=== PATIENT | female | born 1935 | race Caucasian/White ===

== ENCOUNTER 2021-06-23 05:22 | Inpatient (IN) | payer BC, MEDICARE ==
[~2021-06-23] VITALS: Ht 167.6 cm; Wt 65.8 kg
[~2021-06-23 05:22] MED LIST: DIGOXIN125 MCG PO
[2021-06-23] MEDS ORDERED: SODIUM CHLORIDE 0.9% 1000ML 1,000 ML IV ONE (05:45)
[2021-06-23] MEDS ORDERED: ONDANSETRON HCL INJ 2MG/ML 2ML 2 MG/ML VIAL IV PRN (06:00)
[2021-06-23] MEDS ORDERED: Morphine 2mg Syringe 2 MG/ML SYR IV PRN (06:00)
[2021-06-23 06:18] LABS: BASOPHILS # (AUTO) 0.1 (0.0-0.1); BASOPHILS % 0.8 % (0.0-1.0); EOSINOPHILS # (AUTO) 0.1 (0.0-0.4); EOSINOPHILS % 1.6 % (0.0-6.0); HEMATOCRIT 35.4 % (34.2-44.1); HEMOGLOBIN 11.7 g/dL (12.0-16.0); LYMPHOCYTES # (AUTO) 2.3 (1.0-3.2); LYMPHOCYTES % 30.6 % (18.0-39.1); MEAN CORPUSCULAR HEMOGLOBIN 32.9 pg (28-32); MEAN CORPUSCULAR HGB CONC 33.1 g/dL (31-35); MEAN CORPUSCULAR VOLUME 99.4 fL (81-99); MONOCYTES # (AUTO) 0.5 (0.2-0.8); MONOCYTES % 6.5 % (4.4-11.3); NEUTROPHILS # (AUTO) 4.5 (2.1-6.9); PLATELET COUNT 263 x10e3/uL (140-360); RED BLOOD COUNT 3.56 x10e6/uL (3.6-5.1); RED CELL DISTRIBUTION WIDTH 13.1 % (11.7-14.4)
[2021-06-23 06:23] LABS: INR 0.94; PROTHROMBIN TIME 13.4 seconds (11.9-14.5)
[2021-06-23 06:24] LABS: PARTIAL THROMBOPLASTIN TIME 29.2 seconds (23.8-35.5)
[2021-06-23 06:30] LABS: ALBUMIN 3.5 g/dL (3.5-5.0); ALBUMIN/GLOBULIN RATIO 0.9 (0.8-2.0); ANION GAP 15.6 mmol/L (8-16); CALCIUM 10.4 mg/dL (8.4-10.2); CREATININE, SERUM 1.28 mg/dL (0.57-1.11); POTASSIUM 4.6 mmol/L (3.5-5.1)
[2021-06-23 06:40] LABS: CREATINE KINASE MB 1.2 ng/mL (0-5.0)
[2021-06-23] MEDS ORDERED: SODIUM CHLORIDE 0.9% 50ML 50 ML ONE (08:21)
[2021-06-23] MEDS ORDERED: ESIDRIX25 MG PO (10:52)
[2021-06-23] MEDS ORDERED: SERTRALINE HCL100 MG PO (10:52)
[2021-06-23] MEDS ORDERED: ELIQUIS5 MG PO (10:52)
[2021-06-23] MEDS ORDERED: AMLODIPINE BESYL5 MG PO (10:52)
[2021-06-23] MEDS ORDERED: GEMFIBROZIL600 MG PO (10:52)
[2021-06-23] MEDS ORDERED: OLMESARTAN MEDO20 MG PO (10:52)
[2021-06-23 11:05] VITALS: BP 139/62
[2021-06-23 12:29] VITALS: BP 139/62
[2021-06-23 13:22] VITALS: BP 139/62
[2021-06-23 15:28] VITALS: BP 131/67
[2021-06-23] MEDS: FAMOTIDINE 20 MG TAB PO SCH (16:49)
[2021-06-23 20:00] VITALS: BP 119/66
[2021-06-23 21:00] VITALS: BP 119/66
[2021-06-23] MEDS: SERTRALINE HCL 100 MG TAB PO SCH (21:53)
[2021-06-23] MEDS: ACETAMINOPHEN/CODEINE 300MG - 30MG TAB PO PRN (21:53)
[2021-06-24] VITALS (8 sets, daily range): BP systolic 119–137; BP diastolic 46–69
[2021-06-24 06:24] LABS: HEMATOCRIT 32.1 % (34.2-44.1); HEMOGLOBIN 10.5 g/dL (12.0-16.0)
[2021-06-24 06:42] LABS: ANION GAP 11.2 mmol/L (8-16); CALCIUM 9.2 mg/dL (8.4-10.2); CREATININE, SERUM 1.01 mg/dL (0.57-1.11); POTASSIUM 3.2 mmol/L (3.5-5.1)
[2021-06-24] MEDS: FAMOTIDINE 20 MG TAB PO SCH ×2 (08:30→18:45)
[2021-06-24] MEDS: AMLODIPINE BESYLATE 5 MG TAB PO SCH (10:17)
[2021-06-24] MEDS: DIGOXIN 0.125 MG TAB PO SCH (10:17)
[2021-06-24] MEDS: APIXABAN 5 MG TABLET PO SCH (17:00)
[2021-06-24] MEDS ORDERED: BACITRACIN/POLYMYXIN 30 GM OINT TP PRN (21:15)
[2021-06-24] MEDS: SERTRALINE HCL 100 MG TAB PO SCH (23:34)
[2021-06-25] VITALS: BP 120/68
[2021-06-25 02:38] VITALS: BP 120/68
[2021-06-25 04:00] VITALS: BP 121/51
[2021-06-25 07:52] VITALS: BP 119/57
[2021-06-25 09:00] VITALS: BP 119/57
[2021-06-25] MEDS: DIGOXIN 0.125 MG TAB PO SCH (09:00)
[2021-06-25] MEDS: APIXABAN 5 MG TABLET PO SCH (09:33)
[2021-06-25] MEDS: FAMOTIDINE 20 MG TAB PO SCH (09:33)
[2021-06-25] MEDS: AMLODIPINE BESYLATE 5 MG TAB PO SCH (09:33)
[2021-06-25] MEDS: ACETAMINOPHEN/CODEINE 300MG - 30MG TAB PO PRN (10:08)
== END 2021-06-25 10:35 | disposition home health service (06) | DRG 904 ==
LOC: ER 05:43 → ERHOLD 06:03 → PACU V 09:57 → IMCU 11:11 → MED/SURG3 11:47
PROVIDERS: ADMIT Internal Medicine; ATTEND Internal Medicine
PROC: 0JQ00ZZ Repair Scalp Subcutaneous Tissue and Fascia, Open Approach (ICD-10-PCS; 2021-06-23)
PROC: 0HR0XK3 Replacement of Scalp Skin with Nonautologous Tissue Substitute, Full Thickness, External Approach (ICD-10-PCS; principal; 2021-06-23 07:30)
DX: L76.21 Postprocedural hemorrhage of skin and subcutaneous tissue following a dermatologic procedure (principal); I48.20 Chronic atrial fibrillation, unspecified; N17.9 Acute kidney failure, unspecified; I10 Essential (primary) hypertension; Z96.653 Presence of artificial knee joint, bilateral; C44.42 Squamous cell carcinoma of skin of scalp and neck; E87.6 Hypokalemia; Z20.822 Contact with and (suspected) exposure to COVID-19
CPT/HCPCS: 36415; 80048; 80053; 82550; 82553; 84484; 85014; 85018; 85025; 85610; 85730; 93005; 94799; 97605; 97606; 99251; 99284; J0690; J2270; J2405; J7030; J7050; Q4104; U0002

== ENCOUNTER 2022-01-10 21:19 | Emergency (ER) | payer MEDICARE, OTHER ==
[~2022-01-10] VITALS: Ht 167.6 cm; Wt 65.8 kg
[~2022-01-10 21:19] MED LIST changes: +AMLODIPINE BESYL5 MG PO; +ELIQUIS5 MG PO; +ESIDRIX25 MG PO; +GEMFIBROZIL600 MG PO; +OLMESARTAN MEDO20 MG PO; +SERTRALINE HCL100 MG PO
[2022-01-10 22:02] LABS: BASOPHILS % 0.3 % (0.0-1.0); EOSINOPHILS # (AUTO) 0.2 (0.0-0.4); EOSINOPHILS % 1.3 % (0.0-6.0); HEMOGLOBIN 9.3 g/dL (12.0-16.0); LYMPHOCYTES # (AUTO) 1.9 (1.0-3.2); LYMPHOCYTES % 15.5 % (18.0-39.1); MEAN CORPUSCULAR HEMOGLOBIN 30.9 pg (28-32); MEAN CORPUSCULAR HGB CONC 32.1 g/dL (31-35); MEAN CORPUSCULAR VOLUME 96.3 fL (81-99); MONOCYTES # (AUTO) 0.8 (0.2-0.8); MONOCYTES % 6.5 % (4.4-11.3); NEUTROPHILS % 75.5 % (38.7-80.0); PLATELET COUNT 341 x10e3/uL (140-360); RED BLOOD COUNT 3.01 x10e6/uL (3.6-5.1); RED CELL DISTRIBUTION WIDTH 12.7 % (11.7-14.4)
[2022-01-10 22:20] LABS: ALBUMIN 2.3 g/dL (3.5-5.0); ALBUMIN/GLOBULIN RATIO 0.5 (0.8-2.0); ANION GAP 17.2 mmol/L (8-16); CALCIUM 9.3 mg/dL (8.4-10.2); CREATININE, SERUM 0.78 mg/dL (0.57-1.11); POTASSIUM 3.2 mmol/L (3.5-5.1)
== END 2022-01-10 23:49 | disposition home or self-care (01) ==
LOC: ER 21:33
DX: M79.89 Other specified soft tissue disorders (principal); M25.532 Pain in left wrist; Z88.0 Allergy status to penicillin
CPT/HCPCS: 36415; 80053; 83605; 85025